=== PATIENT | male | born 1975 | race Caucasian/White ===

== ENCOUNTER 2021-12-29 21:56 | Observation (INO) | payer MEDICAID, SELFPAY ==
[2021-12-29 22:06] VITALS: BP 187/103; O2SAT 96
[2021-12-29 22:08] VITALS: BP 187/103; PULSE 77; RESP 18; TEMP 37.2; O2SAT 95; BMI 27.1
--- NOTE | 2021-12-29 22:08 | ECG_ITS ---
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 Measurements Intervals [employer] Rate: 77 P: 57 SC: 168 QRS: 21 QRSD: 141 T: 184 QT: 419 QTc: 476 Interpretive Statements SINUS RHYTHM POSSIBLE LEFT ATRIAL ENLARGEMENT [-0.1mV P-WAVE IN V1/V2] LEFT BUNDLE BRANCH BLOCK [120+ ms QRS DURATION, 80+ ms Q/S IN V1/V2, 85+ ms R IN I/aVL/V5/V6] Compared to ECG 10/29/2017 04:30:40 No significant changes Electronically Signed On 12-30-2021 19:42:45 CDT by Louie York M.D. [id number]
--- NOTE | 2021-12-29 22:08 | XRR_ITS ---
PROCEDURE INFORMATION: Exam: XR Chest Exam date and time: 12/29/2021 10:13 PM Age: 46 years old Clinical indication: Sternal or substernal pain; Additional info: Cp TECHNIQUE: Imaging protocol: XR of the chest. Views: 1 view. COMPARISON: CR Chest 1 [place] [id number] 10/29/2017 1:27 AM FINDINGS: Lungs: The lung bases are suboptimally assessed due to technique however the upper lungs are clear of focal consolidation. Tiny left basilar linear opacities likely atelectasis or scarring. Pleural spaces: Unremarkable. No pleural effusion. No pneumothorax. Heart/Mediastinum: Cardiac silhouette appears normal in size. No obvious vascular congestion. Bones/joints: No acute osseous findings. Other findings: Single view was submitted. XR/XR chest 1V portable [id number] IMPRESSION: No obvious acute consolidation. Suboptimal lung base assessment. Followup including lateral view may be obtained if clinically indicated.
[2021-12-29 22:22] LABS: Basophils % 0.6 %; Eosinophils # 0.3 10^3/uL (0.0-0.8); Eosinophils % 3.9 %; Hematocrit 43.8 % (42.0-52.0); Lymphocytes # 2.3 10^3/uL (0.8-4.8); Lymphocytes % 33.2 %; Mean Corpuscular Hemoglobin 28.6 pg (28.0-34.0); Mean Corpuscular Volume 89.6 fl (80-94); Mean Platelet Volume 9.3 fL (7.4-10.4); Monocytes # 0.7 10^3/uL (0.2-0.9); Monocytes % 9.7 %; Neutrophils # 3.62 10^3/uL (1.8-7.7); Neutrophils % 52.3 %; Nucleated Red Blood Cells % 0 %; Platelet Count 240 10^3/cmm (130-400); Red Blood Count 4.89 10^6/uL (4.1-5.3); Red Cell Distribution Width 13.2 % (12.1-15.1); White Blood Count 6.9 10^3/uL (4.0-10.0)
[2021-12-29 22:30] VITALS: PULSE 73; O2SAT 96
[2021-12-29] MEDS: aspirin 325 mg Tablet PO (22:33)
[2021-12-29] MEDS: nitroglycerin 1 gm/inch oint Pkt 2 INCH TOPICAL (22:34)
[2021-12-29 22:35] LABS: Troponin(5th) Baseline 23 ng/L (0-15)
[2021-12-29] MEDS: ondansetron 2 mg/ML SDV 2 mL 4 MG IVP ×2 (22:35→23:49)
[2021-12-29 22:36] VITALS: RESP 20
[2021-12-29] MEDS: morphine 4 mg/mL SDV 1 mL IVP (22:36)
[2021-12-29] MEDS: labetalol 5 mg/mL SDV 20mL 20 MG IVP (22:40)
[2021-12-29 22:43] LABS: Alanine Aminotransferase 16 U/L (0-41); Albumin Level 4.3 g/dL (3.5-5.2); Alkaline Phosphatase 102 IU/L (40-130); Anion Gap 13.8 (5-19); Aspartate Amino Transferase 17 U/L (0-40); Blood Urea Nitrogen 11 mg/dL (6-20); Calcium 9.1 mg/dL (8.5-10.5); Carbon Dioxide 26 mmol/L (22-29); Chloride 100 mmol/L (98-107); Creatine Phosphokinase 88 U/L (39-308); Glomerular Filtration Rate 103.6 mL/min (90-130); Glucose 94 mg/dL (65-115); NT Pro B Type Natriuretic Pept 339 pg/mL (0-125); Osmolality Calculated 281 mOsm/kg (285-295); Potassium 3.8 mmol/L (3.5-5.1); Sodium 136 mmol/L (136-145); Total Bilirubin 0.3 mg/dL (0.15-1.2); Total Protein 7.3 g/dL (6.6-8.7)
--- NOTE | 2021-12-29 22:49 | W.ED.CHESTPA ---
HPI - Chest Pain General: Chief Complaint: Chest Pain Stated Complaint: CP Time Seen by Provider: 12/29/21 22:01 Source: patient History of Present Illness: 46-year-old male with a history of coronary disease. He believes he had his last stent around a year and a half ago at an outside facility. He presents with chest discomfort. It started this evening after his and he were out driving around. He describes it as a tightness. He notes that his blood pressure has been hard to control recently despite regular use of his blood pressure medication. He was seen at [facility] 4 to 5 days ago with hypertension, and was allowed discharge at that point. Rates his pain at a 9.5. He says he is nauseated, and short of breath. The pain radiates into his neck. MD complaint: chest pain Pertinent past history: coronary artery disease Onset (ago): hour(s) Timing of current episode: constant Prior episodes: Yes Onset: during rest Pain location: substernal Pain radiation: back and neck Severity: severe Quality: tightness and heaviness Relieving factors: nitroglycerin Associated symptoms: Reports dyspnea, leg edema and nausea; Deny abdominal pain, diaphoresis, fever(s), palpitations or vomiting Treatment prior to arrival: nitroglycerin Review of Systems Const: Denies: fever(s) or diaphoresis ENMT: Denies: throat pain Card: Denies: palpitations Resp: Reports: dyspnea; Denies: productive cough or non-productive cough GI: Reports: nausea; Denies: abdominal pain or vomiting Neuro: Denies: headache(s) Physical Exam Const: GENERAL APPEARANCE: cooperative; not frail appearing HENMT: COMMON NORMALS: normocephalic, atraumatic and Normal external nose present HEAD & SCALP: normocephalic and atraumatic FACE & SINUS: normal facial exam NOSE: Normal external nose present and Normal nares present Eye: COMMON NORMALS: Equal, round and reactive pupils present and EOMs intact bilaterally PUPIL: Yes Equal, round and reactive pupils present Neck/C-Spine: GENERAL: Yes trachea midline Chest: COMMONS NORMALS: normal inspection of the chest CHEST: No tenderness Resp: COMMON NORMALS: normal respiratory effort, No use of accessory muscles and clear to auscultation bilaterally AUSCULTATION: clear to auscultation bilaterally Cardio: COMMON NORMALS: regular rate and regular rhythm RATE: regular rate RHYTHM: regular rhythm GI: COMMON NORMALS: Normal to inspection, nondistended, normoactive bowel sounds present, Soft to palpation and non-tender PALPATION: Yes Soft to palpation Extremity: COMMON NORMALS: no pedal edema Neuro: GEMA COMA SCALE: document GCS findings Gema coma scale eye opening: Spontaneous Gema coma scale verbal response: Orientated [place] coma scale motor response: Obey commands Gema coma scale total score: 15 Skin: COMMON NORMALS: no rashes or lesions noted GENERAL SKIN EXAM: no rashes or lesions noted Course Consultations: Consultation #1: Jailyn Vital Signs: Vital signs: Vital Signs Temperature 99.0 F 12/29/21 22:08 Pulse Rate 66 12/30/21 00:00 Respiratory Rate 20 H 12/30/21 01:06 Blood Pressure 143/94 12/30/21 00:00 Pulse Oximetry 92 12/30/21 00:00 MDM - Chest Pain Medical Decision Making 46-year-old gentleman with a history of coronary disease status post 2 different stents on 2 occasions. His last was 1.5 years ago. He said chest pain on and off for a few days. It was much more intense this evening. It radiates to his jaw, and now to both arms. His CBC is normal. His BMP is normal. His EKG shows a left bundle branch block that is significant. His first troponin was 23, second was 23 as well. Initially, nitroglycerin paste, and morphine helped with his pain. It has since returned though despite continued use of nitroglycerin paste. He will be given another dose of morphine his blood pressure was quite elevated on arrival, but with IV lab nadolol, and nitroglycerin paste, it is improved. Blood pressure was 140/70. Since he still having pain, and has a coronary disease history, he will be observed. Lab Data : 12/29/21 22:05 12/29/21 22:05 Radiology Impressions Chest X-Ray 12/29/21 22:08 IMPRESSION: No obvious acute consolidation. Suboptimal lung base assessment. Followup including lateral view may be obtained if clinically indicated. Laboratory Results WBC 6.9 10^3/uL (4.0-10.0) 12/29/21 22:05 RBC 4.89 10^6/uL (4.1-5.3) 12/29/21 22:05 Hgb 14.0 g/dL (11.7-16.6) 12/29/21 22:05 Hct 43.8 % (42.0-52.0) 12/29/21 22:05 MCV 89.6 fl (80-94) 12/29/21 22:05 MCH 28.6 pg (28.0-34.0) 12/29/21 22:05 MCHC 32.0 g/dL (30.0-36.0) 12/29/21 22:05 RDW 13.2 % (12.1-15.1) 12/29/21 22:05 Plt Count 240 10^3/cmm (130-400) 12/29/21 22:05 MPV 9.3 fL (7.4-10.4) 12/29/21 22:05 Neut % (Auto) 52.3 % 12/29/21 22:05 Lymph % (Auto) 33.2 % 12/29/21 22:05 [place] % (Auto) 9.7 % 12/29/21 22:05 Eos % (Auto) 3.9 % 12/29/21 22:05 Baso % (Auto) 0.6 % 12/29/21 22:05 Neut # (Auto) 3.62 10^3/uL (1.8-7.7) 12/29/21 22:05 Lymph # (Auto) 2.3 10^3/uL (0.8-4.8) 12/29/21 22:05 [place] # (Auto) 0.7 10^3/uL (0.2-0.9) 12/29/21 22:05 Eos # (Auto) 0.3 10^3/uL (0.0-0.8) 12/29/21 22:05 Baso # (Auto) 0.0 10^3/uL (0.0-0.1) 12/29/21 22:05 Nucleated RBC % (auto) 0 % 12/29/21 22:05 Nucleated RBCs # 0.0 /100WBC 12/29/21 22:05 Sodium 136 mmol/L (136-145) 12/29/21 22:05 Potassium 3.8 mmol/L (3.5-5.1) 12/29/21 22:05 Chloride 100 mmol/L (98-107) 12/29/21 22:05 Carbon Dioxide 26 mmol/L (22-29) 12/29/21 22:05 Anion Gap 13.8 (5-19) 12/29/21 22:05 BUN 11 mg/dL (6-20) 12/29/21 22:05 Creatinine 0.8 mg/dL (0.7-1.2) 12/29/21 22:05 GFR Calculation 103.6 mL/min (90-130) 12/29/21 22:05 Glucose 94 mg/dL (65-115) 12/29/21 22:05 Calculated Osmolality 281 mOsm/kg (285-295) L 12/29/21 22:05 Calcium 9.1 mg/dL (8.5-10.5) 12/29/21 22:05 Total Bilirubin 0.3 mg/dL (0.15-1.2) 12/29/21 22:05 AST 17 U/L (0-40) 12/29/21 22:05 ALT 16 U/L (0-41) 12/29/21 22:05 Alkaline Phosphatase 102 IU/L (40-130) 12/29/21 22:05 Creatine Kinase 88 U/L (39-308) 12/29/21 22:05 Troponin T Baseline 23 ng/L (0-15) H 12/29/21 22:05 Troponin T 120 Minute 22.62 ng/L (0-15) H 12/29/21 23:45 Delta Troponin T -0.38 ABS# (0-10) L 12/29/21 23:45 NT-Pro-B Natriuret Pep 339 pg/mL (0-125) H 12/29/21 22:05 Total Protein 7.3 g/dL (6.6-8.7) 12/29/21 22:05 Albumin 4.3 g/dL (3.5-5.2) 12/29/21 22:05 Globulin 3.0 g/dL (1.3-4.6) 12/29/21 22:05 Discharge Plan Discharge Patient Disposition: Placed in Observation Clinical Impression: Coronary artery disease, Chest pain Coding Level of Care Code ED [employer] Dynamics Instructor for Ev Fwd Exam Comprehensive
[2021-12-29 23:00] VITALS: BP 172/100; PULSE 68; O2SAT 93
[2021-12-29 23:30] VITALS: BP 143/94; PULSE 65; O2SAT 93
[2021-12-30] VITALS (84 sets, daily range): BP systolic 105–181; BP diastolic 57–107; PULSE 62–80; RESP 11–32; TEMP 36.3–36.8; O2SAT 90–99; BMI 25.7
--- NOTE | 2021-12-30 00:08 | ECG_ITS ---
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 Measurements Intervals [place] Rate: 62 P: 30 CT: 168 QRS: 15 QRSD: 145 T: 167 QT: 498 QTc: 507 Interpretive Statements SINUS RHYTHM LEFT BUNDLE BRANCH BLOCK [120+ ms QRS DURATION, 80+ ms Q/S IN V1/V2, 85+ ms R IN I/aVL/V5/V6] Compared to ECG 10/29/2017 04:30:40 No significant changes Electronically Signed On 12-30-2021 19:44:29 CDT by Louie York M.D. [id number]
[2021-12-30 00:28] LABS: Troponin 5 2HR 22.62 ng/L (0-15)
[2021-12-30 00:30] LABS: Troponin 5 2HR Delta -0.38 ABS# (0-10)
[2021-12-30] MEDS: morphine 4 mg/mL SDV 1 mL IVP (01:06)
--- NOTE | 2021-12-30 01:08 | P.HP_ITS ---
Providers/Chief Complaint Chief Complaint: CP History of Present Illness The patient is a 46-year-old male who presented with chief complaint of chest pain. He states that the chest pain started approximately 11:30 AM on December 29, 2021. He states it was of gradual onset and localized to his left chest with radiation to the left side of his neck and his back. He describes it as a sharpness and sent since the time of onset?s been intermittent. He did not take any medication for the pain at home. As worst the pain rated 9 out of 10 and currently rates 6 out of 10. With the chest pain he admits to dyspnea, lightheadedness, dizziness, diaphoresis, palpitations. He denies sensation of rapid heartbeat or sensation knee right heartbeat. Patient has known history of coronary artery disease, status post NV, status post at. He also has known history of CHF with unknown ejection fraction. The patient continues to smoke. From what I understand, the patient had a cardiac catheterization in 2020. He presents for further evaluation Review of Systems General: Reports: 10 or more systems reviewed and unremarkable except in HPI and below Medications/Allergies Allergies Allergy/AdvReac Type Severity Reaction Status Date / Time gabapentin [From Neurontin] Allergy Unknown Verified 12/29/21 22:13 pregabalin [From Lyrica] Allergy Unknown Verified 12/29/21 22:13 Vitals/I&O/Wt Last Vital Signs Temp 99.0 F 12/29/21 22:08 Pulse 66 12/30/21 00:00 Resp 20 H 12/30/21 01:06 BP 143/94 12/30/21 00:00 Pulse Ox 92 12/30/21 00:00 Weight last 48 hrs Weight 90.718 kg Physical Exam Narrative: General: -Alert -No acute distress -No dyspnea -No tachypnea Head: -Atraumatic -Normocephalic Eyes: -Pupils equally round and reactive to light and accommodation -Extraocular muscles intact Neurological: -Cranial nerves II-XII intact Neck: -No jugular venous distention -No thyromegaly -No cervical lymphadenopathy Heart: -Regular rate -Regular rhythm -No murmurs -No gallops -No rubs Lungs: -No wheeze -No rhonchi -No rales ? Abdomen: -Normal bowel sounds in all four quadrants -No rebound -No guarding -No tenderness Extremities: -2/4 pulse in all four extremities -No clubbing -No cyanosis -No edema -No calf tenderness present bilaterally -Negative Luna?s sign bilaterally Musculoskeletal: -5/5 bilateral upper extremity strength -5/5 bilateral lower extremity strength -Sensorium of bilateral upper extremities are equal and intact -Sensorium of bilateral lower extremities are equal and intact ? Additional Details / Additional Findings / Exceptions / Miscellaneous: Data : 12/29/21 22:05 12/29/21 22:05 A&P Assessment and plan (1) Chest pain: Status: Acute Plan chest pain, rule out ACS. Patient has known history of coronary artery disease, status post NV, status post stent. Troponin minimally elevated. Will monitor patient on telemetry and checks her cardiac enzymes. Check TSH, free T4, magnesium level. In the morning we will check fasting lipid panel and recheck EKG. Echo cardiac pending. Aspirin 81 Mill grams by mouth daily plus Plavix 35 Mill cans daily plus metoprolol 12.5 Mill grams by mouth twice a day +1 inch every 6 hours plus Lipitor 80 Mill grams by mouth daily at bedtime Depression COPD CHF. Unknown ejection fraction. Strict I/O. Daily weight. Echocardiogram pending GERD Hyperlipidemia. Fasting lipid panel pending. Lipitor 80 Mill grams by mouth daily at bedtime Obesity. The patient will be counseled regarding lifestyle modification Smoker. The patient will be counseled regarding smoking cessation DVT Proflex is. Lovenox 40 Mill grams subcu tensely daily Attestations Medical Necessity Statement*: the patient's anticipate length of stay is less than 2 midnights to rule out ACS for his chest pain Coding Level of Care Code Acute Sales Agent Financial Report Service for Ev Holt Diagnoses Chest pain R07.9
[2021-12-30 01:44] LABS: Free T4 Free Thyroxine 0.88 ng/dL (0.82-1.77); Magnesium 2.2 mg/dL (1.7-2.3); Thyroid Stimulating Hormone 4.14 uIU/mL (0.27-4.20)
--- NOTE | 2021-12-30 01:50 | USCV_ITS ---
Mckinley Arzola Age: 46 Gender: M : 1975 Exam Date: 12/30/2021 06:45 Ordering Phys: Glendy Glaser DO Technologist: Smith Segal Exam Location: [facility] Indication: chest pain BP: 181 / 107 HR: 73 Rhythm: Sinus Technical Quality: Adequate MEASUREMENTS (Male / Female) Normal Values 2D ECHO LV Diastolic Diameter PLAX 4.0 cm 4.2 - 5.9 / 3.9 - 5.3 cm LV Systolic Diameter PLAX 2.8 cm IVS Diastolic Thickness 1.6 cm 0.6 - 1.0 / 0.6 - 0.9 cm IVS Systolic Thickness 2.0 cm LVPW Diastolic Thickness 1.5 cm 0.6 - 1.0 / 0.6 - 0.9 cm LVPW Systolic Thickness 1.9 cm LVOT Diameter 2.0 cm LV Ejection Fraction 2D Teich 58.7 % LV Ejection Fraction MOD 2C 55.7 % LV Ejection Fraction 2C AL 55.3 % LA Diameter 3.4 cm LA Width 3.0 cm LA Height 4.4 cm RA Width 3.4 cm RA Height 4.1 cm Aorta at Sinotubular Diameter 2.8 cm IVC Diameter 1.9 cm M-MODE Aortic Annulus Diameter 3.0 cm LA Ao Ratio MM 1.3 MV E Point Septal Separation 0.3 cm DOPPLER AV Peak Velocity 169.0 cm/s LVOT Peak Velocity 96.0 cm/s AV Area Cont Eq vti 1.8 cm squared AV Area Cont Eq pk 1.8 cm squared MV Peak Velocity 106.0 cm/s MV Area PHT 3.5 cm squared Mitral E to A Ratio 0.8 MV E' Velocity 43.2 cm/s Mitral E to MV E' Ratio 8.2 Mitral E to LV E' Lateral Ratio 7.1 Mitral E to LV E' Septal Ratio 9.7 TR Peak Velocity 285.6 cm/s TR Peak Gradient 32.6 mmHg TR Mean Velocity 225.5 cm/s TR Mean Gradient 21.0 mmHg TR Velocity Time Integral 99.6 cm Right Atrial Pressure 3.0 mmHg Pulmonary Artery Systolic Pressu 35.6 mmHg RV Acceleration Time 0.1 s RV Ejection Time 0.3 s RV AcT/ET 0.4 FINDINGS Left Ventricle Normal left ventricular size. LV systolic function is normal with EF of 55-60%. No regional wall motion abnormalities. Grade 1 diastolic dysfunction Right Ventricle The right ventricle is normal in size and function. Right Atrium The right atrium is normal in size. Left Atrium The left atrium is normal in size. Mitral Valve Structurally normal mitral valve without significant stenosis or prolapse. There is trace mitral regurgitation. Aortic Valve Structurally normal aortic valve without significant sclerosis or stenosis. There is mild to moderate aortic regurgitation. Tricuspid Valve Structurally normal tricuspid valve without significant stenosis.Trace tricuspid regurgitation. Pulmonary artery systolic pressure is normal. Pulmonic Valve Not well visualized Pericardium Normal pericardium without effusion. Aorta Normal ascending aorta dimension. IVC CONCLUSIONS LV systolic function is normal with EF of 55-60% Grade 1 diastolic dysfunction Trace mitral regurgitation Mild to moderate aortic regurgitation No comparison studies are available Louie York MD (Electronically Signed) Final Date: 30 Dec 2021 13:59 S
--- NOTE | 2021-12-30 01:55 | PC.NURSE ---
Dr. Glaser notified of blood pressure 181/107, pulse 62
[2021-12-30] MEDS: enoxaparin 40 mg/0.4 mL Syringe SUBCUT (02:07)
[2021-12-30] MEDS: clopidogrel 75 mg Tablet PO (02:07)
[2021-12-30] MEDS: hyDRALAzine 20 mg/mL INJ 1 mL 10 MG IVP (02:08)
[2021-12-30 02:16] LABS: Amphetamines Screen Urine Negative (Negative); Barbiturates Screen Urine Negative (Negative); Benzodiazepines Screen Urine Negative (Negative); Cocaine Screen Urine Negative (Negative); Opiate Screen Urine Positive (Negative); PCP Screen Urine Negative (Negative); THC Screen Urine Negative (Negative)
[2021-12-30] MEDS: acetaminophen 325 mg Tablet 650 MG PO (03:48)
[2021-12-30] MEDS: nitroglycerin 1 gm/inch oint Pkt 1 INCH TOPICAL ×2 (03:48→11:41)
--- NOTE | 2021-12-30 04:08 | ECG_ITS ---
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 Measurements Intervals [place] Rate: 65 P: 50 NE: 189 QRS: 48 QRSD: 145 T: 238 QT: 494 QTc: 517 Interpretive Statements SINUS RHYTHM LEFT BUNDLE BRANCH BLOCK [120+ ms QRS DURATION, 80+ ms Q/S IN V1/V2, 85+ ms R IN I/aVL/V5/V6] Compared to ECG 12/29/2021 23:43:36 No significant changes Electronically Signed On 12-30-2021 19:44:25 CDT by Louie York M.D. [id number]
[2021-12-30 04:25] LABS: Troponin 5 6HR 29.14 ng/L (0-15)
[2021-12-30 04:38] LABS: Troponin 5 6HR Delta 6.14 ng/L (0-12)
--- NOTE | 2021-12-30 06:13 | PC.NURSE ---
Patient sleeping in bed at this time, no s/s of pain.
[2021-12-30 06:28] LABS: Chol HDL Ratio 3.44 mg/dL (1.0-5.00); Cholesterol 134 mg/dL (0-200); HDL Cholesterol 39 mg/dL (60-100); LDL Cholesterol Calculated 81 mg/dL (50-129); LDL HDL Ratio 2.08 RATIO (0.00-3.22); Triglycerides 68 mg/dL (0-150)
[2021-12-30 08:43] LABS: D Dimer <= 0.27 ug/mIFEU (0-0.59)
[2021-12-30] MEDS: HYDROmorphone 1 mg/mL INJ 1 mL 0.2 MG IVP ×3 (09:22→19:46)
[2021-12-30] MEDS: aspirin 81 mg Chew Tablet PO (09:23)
[2021-12-30] MEDS: metoprolol tartrate 25 mg Tablet 12.5 MG PO ×2 (09:26→19:48)
--- NOTE | 2021-12-30 09:55 | PC.CHAP ---
Pastoral Care Encounter/Spiritual Assessment Type of Contact [] Declined community mental health social worker visit [] Patient/Family/Request visit [] Outpatient visit [] Follow-up visit [] Physician referral [] Code/Alert [x] Routine visit [] Staff referral [] Actively dying [x] Patient sleeping [] Family support [] [] Out of room [] Palliative care [] [] Receiving care in room [] Pre-surgical visit [] Trauma [] Long length of stay [] ICU visit [] Other: Relational/Emotional Strength [] Patient feels connected with others/family/visitors/staff [] Distress [] Loneliness/isolation [] Abandonment Spirituality of Patient [] Person of Brittney [] Attends Bahai of their Brittney [] Believes in Prayer [] Reads Bible or Jew materials [] There are Spiritual issues to be addressed Chief Librarian Branch Interventions [] Prayer [] Active listening [] Non-anxious presence [] Spiritual/emotional support [] Crisis/trauma care [] Spiritual counseling [] Bereavement support [] Provided bereavement packet [] Provided Bible/devotional materials [] Provided toy/stuffed animal, coloring book to patient or family member [] Provided Communion [] Anointing/[place] [] Salvation [] Completed spiritual assessment [] Other: Impact on Illness or Injury [] Angry [] Fearful [] Anxious [] Often cries [] Exhaustion [] Unable to work [] Unable to attend confucianism [] Unable to walk/stand [] Unable to read [] Unable to drive [] Unable to eat/drink [] Unable to sleep [] Unable to be with family [] Patient intubated [] Other: Summary Time spent with patient
--- NOTE | 2021-12-30 10:22 | P.PN_ITS ---
Subjective Subjective: This morning patient was stating that he still experiencing chest pain despite Nitropaste, I have given him low-dose Dilaudid, consulted Dr. Victor for his typical symptoms, Troponin is trending down, EKG showing old left bundle branch block, patient stating that he has 2 stents placed 2 years ago, he remembers one stent was placed in the maker will give him therapeutic dose of Lovenox EKG changes are related to left bundle branch block, I did review his previous EKG from 2018 which is showing left bundle branch block pattern Vitals/I&O/Wt Last Vital Signs Temp 97.4 F L 12/30/21 04:00 Pulse 71 12/30/21 07:51 Resp 18 12/30/21 09:22 BP 116/74 12/30/21 07:51 Pulse Ox 92 12/30/21 07:51 12/29/21 12/30/21 12/30/21 22:59 06:59 14:59 Intake Total 240 / 240 Output Total 700 / 700 Balance -700 / -700 240 / 240 Weight last 48 hrs Weight 86.636 kg Weight 86.636 kg Weight 86.183 kg Weight 90.718 kg Physical Exam Narrative: This morning patient was laying comfortably however stating that he does experience on and off chest discomfort He has Nitropaste Abdomen soft No signs of edema Multiple skin tattoos S1, S2 Saturating well on room air Nonfocal neuro exam No skin cellulitis No joint swelling Audible stridor or wheezing Data : 12/29/21 22:05 12/29/21 22:05 A&P Assessment and plan (1) Unstable angina: Status: Acute Plan Unstable angina Active smoker Patient is still complaining of chest discomfort We will give him Dilaudid, continue Nitropaste Interval persistent pain we will switch him to nitro drip We will start therapeutic dose of Lovenox Did not meet criteria for ACS Continue aspirin and atorvastatin along with metoprolol Consulted cardiology He has established coronary disease with stents placed 2 years ago at [facility], will request records Tox positive for opioids, patient stating that he only takes Tylenol at home That has could be positive because of opioids given by the EMS Full code Cardiac diet N.p.o. after midnight We will follow-up with cardiology recommendations I counseled patient to let us know if his chest pain gets worse Attestations Medical Necessity Statement*: Coronary angiogram tomorrow Time Spent in Patient Care: 30mins Coding Level of Care Code Acute Director Food Safety for Ev Holt Diagnoses Unstable angina I20.0
[2021-12-30] MEDS: lidocaine 2% viscous 15 ML, aluminum-mag hydrox-simethicon 30 ML, sucralfate oral liq 1 GM PO (11:40)
[2021-12-30] MEDS: ondansetron 2 mg/ML SDV 2 mL 4 MG IVP (11:42)
--- NOTE | 2021-12-30 13:07 | P.CONIM_ITS ---
Providers/Reason For Consult Consulting Physician/Specialty*: Louie York MD/ Cardiology Reason for Consult*: Unstable angina Requesting Physician: Dr Dent Attending Physician: Noris Dent MD History of Present Illness History of Present Illness Mckinley Arzola is a 46 year old male with past medical history of CAD status post prior PCI's, CHF according to his history who presented to the hospital with 1 day of on and off chest discomfort. He feels substernal pain radiating to the left side of the neck and his back. At times it is sharp. He is still having it on and off. He does have some dyspnea. Troponins are negative. EKG does not show significant ischemic changes. Review of Systems Const: Denies: fever(s) or diaphoresis ENMT: Denies: throat pain Card: Denies: palpitations Resp: Reports: dyspnea; Denies: productive cough or non-productive cough GI: Reports: nausea; Denies: abdominal pain or vomiting Neuro: Denies: headache(s) Medications/Allergies Home Medications Medication Instructions Recorded Confirmed Last Taken Type aspirin 81 mg tablet,delayed 81 mg PO DAILY 12/30/21 12/30/21 Unknown History release atorvastatin 80 mg tablet 80 mg PO QPM 12/30/21 12/30/21 Unknown History budesonide-formoterol HFA 160 2 puff INHALATION BID 12/30/21 12/30/21 Unknown History mcg-4.5 mcg/actuation aerosol inhaler (Symbicort) carvedilol 12.5 mg tablet 12.5 mg PO BID 12/30/21 12/30/21 Unknown History clopidogrel 75 mg tablet 75 mg PO DAILY 12/30/21 12/30/21 Unknown History isosorbide mononitrate 60 mg 60 mg PO DAILY 12/30/21 12/30/21 Unknown History tablet,extended release 24 hr loratadine 10 mg tablet 10 mg PO DAILY PRN 12/30/21 12/30/21 Unknown History losartan 25 mg tablet 25 mg PO DAILY 12/30/21 12/30/21 Unknown History pantoprazole 40 mg tablet,delayed 40 mg PO DAILY 12/30/21 12/30/21 Unknown History release paroxetine HCl 20 mg tablet 20 mg PO DAILY 12/30/21 12/30/21 Unknown History tiotropium bromide 18 mcg capsule 36 mcg INHALATION QPM 12/30/21 12/30/21 Unknown History with inhalation device (Spiriva with HandiHaler) trazodone 100 mg tablet 100 mg PO QPM 12/30/21 12/30/21 Unknown History Allergies Allergy/AdvReac Type Severity Reaction Status Date / Time gabapentin [From Neurontin] Allergy Unknown Verified 12/30/21 12:37 pregabalin [From Lyrica] Allergy Unknown Verified 12/30/21 12:37 Current Medications Generic Name Dose Route Start Last Admin Trade Name Freq PRN Reason Stop Dose Admin Acetaminophen 650 mg 12/30/21 01:50 12/30/21 03:48 Acetaminophen 325 Mg Tablet PO 650 mg Q6H PRN Administration Mild/Mod Pain Or Temp >/= 101 Aspirin 81 mg 12/30/21 09:00 12/30/21 09:23 Aspirin 81 Mg Chew Tablet PO 81 mg DAILY DARYL Administration Metoprolol Tartrate 12.5 mg 12/30/21 09:00 12/30/21 09:26 Metoprolol Tartrate 25 Mg Tablet PO 12.5 mg BID@0900,2100 DARYL Administration Nitroglycerin 1 inch 12/30/21 01:50 12/30/21 11:41 Nitroglycerin 1 Gm/Inch Oint Pkt TOPICAL 1 inch Q6H DARYL Administration Ondansetron HCl 4 mg 12/30/21 01:50 12/30/21 11:42 Ondansetron 2 Mg/Ml Sdv 2 Ml IVP 4 mg Q8H PRN Administration vomiting, or N/V if npo PFSH Acute PFSH: Medical History Coronary artery disease Surgical History History of adenoidectomy History of appendectomy History of tonsillectomy Vitals/I&O/Wt Last Vital Signs Temp 97.5 F L 12/30/21 12:00 Pulse 76 12/30/21 12:00 Resp 18 12/30/21 12:00 BP 129/81 12/30/21 12:00 Pulse Ox 96 12/30/21 12:00 12/29/21 12/30/21 12/30/21 22:59 06:59 14:59 Intake Total 240 / 240 Output Total 700 / 700 Balance -700 / -700 240 / 240 Weight last 48 hrs Weight 191 lb Weight 191 lb Weight 190 lb Weight 200 lb Physical Exam Narrative: GENERAL: Patient is alert, awake and oriented x3. [] NECK: No jugular vein distension. [] HEENT: No cyanosis. No icterus. No pallor. [] HEART: Regular S1 and S2. No murmur, rub or gallop. [] LUNGS: Clear to auscultate bilaterally. [] ABDOMEN: Soft, nontender and nondistended. Positive bowel sounds. No guarding, rebound or tenderness. [] CENTRAL NERVOUS SYSTEM: Grossly nonfocal. [] EXTREMITIES: Lower extremities with no edema bilaterally. Pulses palpable in the lower extremities, both dorsalis pedis and posterior tibial. [] Data : 12/29/21 22:05 12/31/21 01:59 A&P Assessment and plan (1) Unstable angina: Status: Acute (2) Chest pain: Patient has presented with her typical chest pain symptoms that are worsening. He is requiring nitro drip. No Troponin elevation or significant ST changes. Given his prior history of CAD with PCI of LAD and current worsening, typical chest pain symptoms, we will proceed with coronary angiogram with possible percutaneous coronary intervention. Risks and benefits of the procedure have been discussed with the patient who understands the risks and benefits and wants to proceed with the procedure. Continue current medications including aspirin and Plavix. Echocardiogram shows normal LV systolic function. Thank you for involving us with care of this patient. We will continue to omari marin. Please call with questions. Status: Acute Consult Attestations Medical Necessity Statement: Care expected to cross 2 midnights Coding Level of Care Code Acute Air Export Logistics Manager for Ev Holt Diagnoses Unstable angina I20.0 Chest pain R07.9
[2021-12-30] MEDS: nitroglycerin drip 50 MG/250 ML PREMIX IV (15:07)
--- NOTE | 2021-12-30 15:32 | PC.NURSE ---
Pt to unit Pt brought to ICU 2 via wheelchair by MS PATIENT SERVICES MANAGER. Pt ambulated to bed with standby assist. Pt is alert and oriented reporting chest pain at a 5/10. Nitro drip has been started. Pt has been oriented to room with call light in place.
--- NOTE | 2021-12-30 19:22 | ECG_ITS ---
[facility] Test Date: 2021-12-30 Pat Name: Mckinley Arzola Department: Room: ICU02 Gender: Male Floor Layer Tile: : 1975 Requested By: Louie York Order Number: [id number] Aliyah MD: Louie York M.D. Measurements Intervals [place] Rate: 71 P: 41 [place]: 174 QRS: 17 QRSD: 150 T: 193 QT: 451 QTc: 492 Interpretive Statements SINUS RHYTHM LEFT BUNDLE BRANCH BLOCK [120+ ms QRS DURATION, 80+ ms Q/S IN V1/V2, 85+ ms R IN I/aVL/V5/V6] Compared to ECG 12/30/2021 03:12:22 No significant changes Electronically Signed On 12-30-2021 19:39:59 CDT by Louie York M.D. [email or web address]
[2021-12-30] MEDS: atorvastatin 40 mg Tablet 80 MG PO (19:48)
--- NOTE | 2021-12-30 20:00 | PC.NURSE ---
Upon coming on shift patient reports chest pain 4/10 with no shortness of breath or nausea. Blood pressure 172/98, O2 saturation 98% with no reports of shortness of breath. Titrated nitro up for chest pain, placed on O2 at 2L NC. Reports continued increase of chest pain to 6/10 and then 8/10, continue to titrate nitro up for chest pain. EKG obtained. Notified Dr. Garces of chest pain 03/12 with radiation to left arm, elevated blood pressure, and current nitro dose. Order given for dilaudid 0.2mg IVP x 1 dose and plan for heart cath in AM.
[2021-12-30] MEDS: enoxaparin 80 mg/0.8 mL Syringe SUBCUT (21:16)
[2021-12-31] VITALS (20 sets, daily range): BP systolic 99–128; BP diastolic 56–74; PULSE 61–71; RESP 4–20; TEMP 36.8–36.9; O2SAT 91–98
[2021-12-31] MEDS: acetaminophen 325 mg Tablet 650 MG PO (00:43)
[2021-12-31 03:37] LABS: Anion Gap 11.3 (5-19); Blood Urea Nitrogen 14 mg/dL (6-20); Calcium 9.1 mg/dL (8.5-10.5); Carbon Dioxide 30 mmol/L (22-29); Chloride 102 mmol/L (98-107); Creatinine Clr Calc Pharmacy 149.8599; Glomerular Filtration Rate 120.9 mL/min (90-130); Glucose 105 mg/dL (65-115); Osmolality Calculated 289 mOsm/kg (285-295); Potassium 4.3 mmol/L (3.5-5.1); Sodium 139 mmol/L (136-145)
[2021-12-31] MEDS: nitroglycerin drip 50 MG/250 ML PREMIX 21 MG IV (04:40)
--- NOTE | 2021-12-31 05:18 | PC.NURSE ---
Shave prep done to bilat groins and left wrist. Cleaned left wrist and bilat groins with chlorhexadine wipes. Pulses marked to bilat feet.
[2021-12-31] MEDS: sodium chloride 0.9% 1,000 ML 50 ML IV (05:42)
[2021-12-31] MEDS: metoprolol tartrate 25 mg Tablet 12.5 MG PO (05:43)
[2021-12-31] MEDS: aspirin 81 mg Chew Tablet PO (05:43)
[2021-12-31] MEDS: diphenhydrAMINE 50 mg Capsule PO (05:43)
--- NOTE | 2021-12-31 06:34 | XACV_ITS ---
Exam Room: [facility] Ht: 183 cm Wt: 88 kg BSA: 2.13 m2 Gender: Male : 1975 Exam Priority: Routine Procedure(s): Procedure Description: Diagnostic procedure Procedure Description: Left Heart Catheterization Procedure Description: Coronary Angiography Diagnostic Cath Status: Urgent Diagnostic Findings * Left Main has no disease. * Left Anterior Descending has no disease. * Circumflex has no disease. * Mid Right Coronary Artery: mild 40% stenosis, [place]: 3 flow. * Coronary angiography shows right dominance. Conclusions 1. Patent prior stents. 2. There is mild coronary artery disease with one vessel disease. Recommendations * Aggressive risk factor modification. * Outpatient cardiology follow up in 4 weeks. Interventional RX Recommendation: medical therapy and/or counseling Diagnostic RX Recommendation: medical therapy and/or counseling Anticoagulation: Heparin Pressures Phase:Rest AO : 144 / 91 ( 114 ) @ 8:36:00 AM 166 / 86 ( 117 ) @ 8:42:00 AM 162 / 82 ( 114 ) @ 8:42:00 AM LV : 160 / 3 / 28 @ 8:42:00 AM 164 / 3 / 27 @ 8:42:00 AM Valves Phase:DefaultPhase AV : 0.0 @ 7:48:19 AM AV Mean Gradient: 0.0 @ 7:48:19 AM Clinical Evaluation EBL: 5mL-10mL Procedural Details Procedure Consent Obtained. Admit Source: In Patient. Pre-Procedure Time Out. Identified patient by full name and date of as verbalized by the patient/guarantor. Does the consent match the physician's order: Yes. Accurate & Complete Informed Consent: Yes. Inpatient/Outpatient History & Physical on Chart: Yes. If H&P is completed, is and addenduem needed: N/A; If yes, is the addendum complete: N/A. Visualize and Verify Site with Patient/Guarantor: N/A. Relevant Radiology Images available: N/A. Pre-op teaching completed and patient verbalized understanding. The risks, benefits, and alternatives of sedation and/or procedure were discussed by physician. The patient agrees to continue. Procedure started. [facility] Clinical Fraility Score: 3: Managing Well. Ophthalmic Pathologist Indications: Worsening Angina. Chest Pain Symptom Assessment: Typical Angina Symptoms. Correct patient, site and procedure confirmed by cath team. Current diagnosis: Chest Pain. PERRLA. Strong, equal hand die trimmer bilaterally. Lungs clear x 5 lobes. IV Site on Arrival: 18 gauge in the right anticubital. IV Fluids: 0.9% NaCl at KVO. 50 mL infused prior to mason tender restoration labor. Pre Procedural Pulses: bilateral dorsalis pedis was 2+. Pre Procedural Pulses: right radial was 3+. Oxygen started at 2liters/min via nasal canula. right groin was prepped with chloroprep then draped in the usual sterile fashion. right radial was prepped with chloroprep then draped in the usual sterile fashion. Physician notified. Baseline sample Acquired. HR: 70 BPM. Physician arrived. Physician scrubbed in. Immediate Pre-Procedure Time Out. Correct Patient: Yes; Correct Procedure: Yes; Correct Site: Yes; Correct Patient Position: Yes; Correct Supplies: Yes; Dried Flammable Prep: Yes; Blood Products Available: N/A;. Arterial access obtained. A 6 trinidadian TIG catheter in over wire. Multiple views taken of left coronary artery. Catheter out. A 5 trinidadian JR4 catheter in over wire. Multiple views taken of right coronary artery. EDP Sample taken: LV 160/3,28; HR: 68 BPM; SpO2: 97%. Pullback taken: LV 164/3,27; AO 166/86(117); Mean: 0mmHg, Peak to Peak: 0mmHg, SEP: 7sec/min; HR: 68 BPM; SpO2: 98%. A TR Band was successful obtaining hemostatsis at the Right Radial artery insertion site. Post Procedure: Pulses reassessed and unchanged. PERRLA. Strong, equal hand die trimmer bilaterally. No VTE prophylaxis required. Medication's Wasted: Heparin = 1000 u. Medication's Wasted: Nitro = 49.8 mg. Medication's Wasted: Lidocaine 1% = 2 mL. Total IV fluids: 45 mL. Post-op diagnosis: Non obstructive CAD. Complications: none. Estimated blood loss: 5mL-10mL. Responsiveness - Normal response to verbal stimuli; alert and oriented, PERRLA. Airway - Unaffected, no intervention required; spontaneous ventilation. Circulation: W/N/L, pulses unchanged. Nausea/Vomiting: No. Procedure completed. Patient transferred by wheelchair to ICU. Vital chart was stopped. Access Site Site: Right Radial artery Sheath Size: 6 Fr Hemostasis Method: TR Band Hemostasis Success: Successful Procedure Medications Start: 7:18 AM Stop: 7:18 AM Medication: Fentanyl Amount: 50 mcg Route: I.V. Start: 7:18 AM Stop: 7:18 AM Medication: 0.9% Saline Amount: 75 ml/hr Route: I.V. drip Start: 7:23 AM Stop: 7:23 AM Medication: Versed Amount: 2 mg Route: I.V. Start: 7:28 AM Stop: 7:28 AM Medication: Benadryl Amount: 50 mg Route: I.V. Start: 7:29 AM Stop: 7:29 AM Medication: Nitrogylcerin Amount: 200 mcg Route: I.A. Start: 7:30 AM Stop: 7:30 AM Medication: Heparin Amount: 5000 units Route: I.V. Start: 7:37 AM Stop: 7:37 AM Medication: Fentanyl Amount: 50 mcg Route: I.V. I, the attending physician, have reviewed and verified all procedure medications. Yes, all medications given per verbal order History/Risk Factors Hypertension: No Dyslipidemia: Yes Peripheral Arterial Disease (PAD): No Myocardial Infarction (MS): No Obesity: No Renal Disease: No Tobacco Use: Current/Recent(w/in 1 year) Prior Interventions PCI: Yes CABG: No Valve Surgery: No Date of PCI: 08/03/2019 Report Signatures Finalized by Louie York MD on 01/06/2022 12:19 AM
--- NOTE | 2021-12-31 07:48 | W.PM.OPSUD ---
Surgery/Procedure H&P Update DATE OF PROCEDURE: December 31, 2021 DATE H&P PERFORMED: 12/30/21 H&P UPDATE INFORMATION: I have reviewed H&P completed within last 30 days, I have examined patient prior to procedure and No changes to prior documentation PREOP DIAGNOSIS: Unstable angina PRIMARY INDICATION FOR PROCEDURE: Unstable angina PLANNED PROCEDURE: Left heart cath with possible percutaneous coronary intervention PATIENT REASSESSED PRIOR TO SEDATION, WITH NO CHANGE NOTED: Yes PHYSICAL EXAM: alert, oriented x 3, clear to auscultation bilaterally and regular rate & rhythm AIRWAY EVAL/ANESTHESIA PLAN: ASA III, Monitored Anesthesia, Local Anesthesia, Risks, benefits & alternatives of sedation and/or procedure discussed and Patient agrees to continue as planned
--- NOTE | 2021-12-31 08:00 | PM.PN ---
Subjective Subjective: Patient is chest pain free now. No significant CAD with patent prior stents Vitals/I&O/Wt Last Vital Signs Temp 98.4 F 12/31/21 04:00 Pulse 61 12/31/21 05:39 Resp 10 L 12/31/21 04:15 BP 110/58 12/31/21 04:15 Pulse Ox 98 12/31/21 04:15 12/30/21 12/31/21 12/31/21 22:59 06:59 14:59 Intake Total 478.275 / 958.275 186.9 / 1145.175 Output Total 975 / 975 500 / 1475 400 / 400 Balance -496.725 / -16.725 -313.1 / -329.825 -400 / -400 Weight last 48 hrs Weight 194 lb Weight 191 lb Weight 191 lb Weight 190 lb Weight 200 lb Physical Exam Narrative: GENERAL: Patient is alert, awake and oriented x3. [] NECK: No jugular vein distension. [] HEENT: No cyanosis. No icterus. No pallor. [] HEART: Regular S1 and S2. No murmur, rub or gallop. [] LUNGS: Clear to auscultate bilaterally. [] ABDOMEN: Soft, nontender and nondistended. Positive bowel sounds. No guarding, rebound or tenderness. [] CENTRAL NERVOUS SYSTEM: Grossly nonfocal. [] EXTREMITIES: Lower extremities with no edema bilaterally. Pulses palpable in the lower extremities, both dorsalis pedis and posterior tibial. [] Data : 12/29/21 22:05 12/31/21 01:59 A&P Assessment and plan (1) Unstable angina: Status: Resolved (2) Chest pain: Status: Resolved Plan Patient has presented with her typical chest pain symptoms that are worsening. He is requiring nitro drip. No Troponin elevation or significant ST changes. Given his prior history of CAD with PCI of LAD and current worsening, typical chest pain symptoms, performed coronary angiogram that shows no significant stenosis and patent prior stents. Continue current medications including aspirin and Plavix. Echocardiogram shows normal LV systolic function. Thank you for involving us with care of this patient. Please call with questions. Attestations Medical Necessity Statement*: Care expected to cross 2 midnights Coding Level of Care Code Acute Bilingual Research Interviewer for Ev Holt Diagnoses Unstable angina I20.0 Chest pain R07.9
--- NOTE | 2021-12-31 09:36 | PC.CHAP ---
Pastoral Care Encounter/Spiritual Assessment Type of Contact [] Declined chemistry quality control analyst visit [] Patient/Family/Request visit [] Outpatient visit [] Follow-up visit [] Physician referral [] Code/Alert [x] Routine visit [] Staff referral [] Actively dying [x] Patient sleeping [] Family support [] [] Out of room [] Palliative care [] [] Receiving care in room [] Pre-surgical visit [] Trauma [] Long length of stay [x] ICU visit [] Other: Relational/Emotional Strength [] Patient feels connected with others/family/visitors/staff [] Distress [] Loneliness/isolation [] Abandonment Spirituality of Patient [] Person of Brittney [] Attends Confucianist of their Brittney [] Believes in Prayer [] Reads Bible or Confucianism materials [] There are Spiritual issues to be addressed Hand Binder Cutter Interventions [x] Prayer [] Active listening [] Non-anxious presence [] Spiritual/emotional support [] Crisis/trauma care [] Spiritual counseling [] Bereavement support [] Provided bereavement packet [] Provided Bible/devotional materials [] Provided toy/stuffed animal, coloring book to patient or family member [] Provided Communion [] Anointing/[place] [] Salvation [x] Completed spiritual assessment [] Other: Impact on Illness or Injury [] Angry [] Fearful [] Anxious [] Often cries [] Exhaustion [] Unable to work [] Unable to attend islam [] Unable to walk/stand [] Unable to read [] Unable to drive [] Unable to eat/drink [] Unable to sleep [] Unable to be with family [] Patient intubated [] Other: Summary Time spent with patient
[2021-12-31] MEDS: enoxaparin 80 mg/0.8 mL Syringe SUBCUT (09:45)
--- NOTE | 2021-12-31 10:17 | P.DS_ITS ---
Discharge Providers Date of Admission: 12/30/21 01:04 Date of Discharge: December 31, 2021 Attending Provider at Admission: Glendy Glaser DO Attending Provider at Discharge: Noris Dent MD Diagnoses at Discharge Discharge Diagnosis (1) Unstable angina: Status: Acute (2) Chest pain: Status: Acute Reason for Visit Reason for Visit: CP Hospital Course Hospital Course 46-year male who has history of coronary artery disease status post 2 stents which were placed at [facility] 2 years ago, active smoker presented with chief complaint of chest pain. Secondary to typical presentation of his chest pain I requested Dr. York to evaluate the patient who took patient for coronary angiogram next day. Coronary angiogram was clean, stents were patent. Patient was counseled to quit smoking and follow-up with his health program specialist. Of note he was complaining of chest pain during his hospitalization which improved with nitroglycerin, he was kept on nitroglycerin drip on 12/30 in ICU. His troponins were unremarkable, EKG did not show new changes other than an old left bundle branch block, TSH normal. D-dimer unremarkable. Echo showed preserved ejection fraction grade 1 diastolic dysfunction no regional wall motion abnormality. Physical Exam Narrative: Pleasant cooperative S1, S2 No chest pain S1, S2 Saturating well on room air Hemodynamically stable Nonfocal neuro exam Multiple skin tattoos Discharge Data Studies Completed and Pending Completed Studies During Hospitalization Category Date Time Status XR chest 1V portable [id number] Stat Exams 12/29/21 22:08 Completed CV. echo complete* [id number] Routine Ultrasound 12/30/21 01:50 Completed Pending at discharge Category Date Time Status FORMING YARDAGE CONTROL OPERATOR request for service Routine Exams 12/31/21 06:34 Ordered Radiology Impressions Chest X-Ray 12/29/21 22:08 IMPRESSION: No obvious acute consolidation. Suboptimal lung base assessment. Followup including lateral view may be obtained if clinically indicated. Laboratory Results WBC 6.9 10^3/uL (4.0-10.0) 12/29/21 22:05 RBC 4.89 10^6/uL (4.1-5.3) 12/29/21 22:05 Hgb 14.0 g/dL (11.7-16.6) 12/29/21 22:05 Hct 43.8 % (42.0-52.0) 12/29/21 22:05 MCV 89.6 fl (80-94) 12/29/21 22:05 MCH 28.6 pg (28.0-34.0) 12/29/21 22:05 MCHC 32.0 g/dL (30.0-36.0) 12/29/21 22:05 RDW 13.2 % (12.1-15.1) 12/29/21 22:05 Plt Count 240 10^3/cmm (130-400) 12/29/21 22:05 MPV 9.3 fL (7.4-10.4) 12/29/21 22:05 Neut % (Auto) 52.3 % 12/29/21 22:05 Lymph % (Auto) 33.2 % 12/29/21 22:05 [place] % (Auto) 9.7 % 12/29/21 22:05 Eos % (Auto) 3.9 % 12/29/21 22:05 Baso % (Auto) 0.6 % 12/29/21 22:05 Neut # (Auto) 3.62 10^3/uL (1.8-7.7) 12/29/21 22:05 Lymph # (Auto) 2.3 10^3/uL (0.8-4.8) 12/29/21 22:05 [place] # (Auto) 0.7 10^3/uL (0.2-0.9) 12/29/21 22:05 Eos # (Auto) 0.3 10^3/uL (0.0-0.8) 12/29/21 22:05 Baso # (Auto) 0.0 10^3/uL (0.0-0.1) 12/29/21 22:05 Nucleated RBC % (auto) 0 % 12/29/21 22:05 Nucleated RBCs # 0.0 /100WBC 12/29/21 22:05 D-Dimer <= 0.27 ug/mIFEU (0-0.59) 12/30/21 03:44 Sodium 139 mmol/L (136-145) 12/31/21 01:59 Potassium 4.3 mmol/L (3.5-5.1) 12/31/21 01:59 Chloride 102 mmol/L (98-107) 12/31/21 01:59 Carbon Dioxide 30 mmol/L (22-29) H 12/31/21 01:59 Anion Gap 11.3 (5-19) 12/31/21 01:59 BUN 14 mg/dL (6-20) 12/31/21 01:59 Creatinine 0.7 mg/dL (0.7-1.2) 12/31/21 01:59 GFR Calculation 120.9 mL/min (90-130) 12/31/21 01:59 Glucose 105 mg/dL (65-115) 12/31/21 01:59 Calculated Osmolality 289 mOsm/kg (285-295) 12/31/21 01:59 Calcium 9.1 mg/dL (8.5-10.5) 12/31/21 01:59 Magnesium 2.2 mg/dL (1.7-2.3) 12/29/21 23:45 Total Bilirubin 0.3 mg/dL (0.15-1.2) 12/29/21 22:05 AST 17 U/L (0-40) 12/29/21 22:05 ALT 16 U/L (0-41) 12/29/21 22:05 Alkaline Phosphatase 102 IU/L (40-130) 12/29/21 22:05 Creatine Kinase 88 U/L (39-308) 12/29/21 22:05 Troponin T Baseline 23 ng/L (0-15) H 12/29/21 22:05 Troponin T 120 Minute 22.62 ng/L (0-15) H 12/29/21 23:45 Delta Troponin T -0.38 ABS# (0-10) L 12/29/21 23:45 Troponin T Hi Sens 6Hr 29.14 ng/L (0-15) H 12/30/21 03:44 Troponin T Hi Sens 6Hr Delta 6.14 ng/L (0-12) 12/30/21 03:44 NT-Pro-B Natriuret Pep 339 pg/mL (0-125) H 12/29/21 22:05 Total Protein 7.3 g/dL (6.6-8.7) 12/29/21 22:05 Albumin 4.3 g/dL (3.5-5.2) 12/29/21 22:05 Globulin 3.0 g/dL (1.3-4.6) 12/29/21 22:05 Triglycerides 68 mg/dL (0-150) 12/30/21 03:44 Cholesterol 134 mg/dL (0-200) 12/30/21 03:44 LDL Cholesterol, Calc 81 mg/dL (50-129) 12/30/21 03:44 HDL Cholesterol 39 mg/dL (60-100) L 12/30/21 03:44 LDL/HDL Ratio 2.08 RATIO (0.00-3.22) 12/30/21 03:44 Cholesterol/HDL Ratio 3.44 mg/dL (1.0-5.00) 12/30/21 03:44 TSH 4.14 uIU/mL (0.27-4.20) 12/29/21 23:45 Free T4 0.88 ng/dL (0.82-1.77) 12/29/21 23:45 Urine Opiates Screen Positive ng/mL (Negative) H 12/30/21 01:20 Ur Barbiturates Screen Negative ng/mL (Negative) 12/30/21 01:20 Ur Phencyclidine Scrn Negative ng/mL (Negative) 12/30/21 01:20 Ur Amphetamines Screen Negative ng/mL (Negative) 12/30/21 01:20 U Benzodiazepines Scrn Negative ng/mL (Negative) 12/30/21 01:20 Urine Cocaine Screen Negative ng/mL (Negative) 12/30/21 01:20 U Marijuana (THC) Screen Negative ng/mL (Negative) 12/30/21 01:20 Vitals Last Vital Signs Temp 98.4 F 12/31/21 04:00 Pulse 61 12/31/21 05:39 Resp 10 L 12/31/21 04:15 BP 110/58 12/31/21 04:15 Pulse Ox 98 12/31/21 04:15 Discharge Plan Discharge Patient Disposition: Home Condition: Stable Prescriptions: Continued atorvastatin 80 mg tablet 80 mg PO QPM 0RF carvedilol 12.5 mg tablet 12.5 mg PO BID 0RF trazodone 100 mg tablet 100 mg PO QPM 0RF paroxetine HCl 20 mg tablet 20 mg PO DAILY 0RF pantoprazole 40 mg tablet,delayed release (DR/EC) 40 mg PO DAILY 0RF losartan 25 mg tablet 25 mg PO DAILY 0RF loratadine 10 mg Tablet 10 mg PO DAILY PRN (Reason: Allergy Symptoms) 0RF Spiriva with HandiHaler 18 mcg capsule, w/inhalation device 36 mcg INHALATION QPM 0RF Symbicort 160-4.5 mcg/actuation HFA aerosol inhaler 2 puff INHALATION BID 0RF aspirin 81 mg Tablet,Delayed Release (Dr/Ec) 81 mg PO DAILY Qty: 30 0RF clopidogrel 75 mg tablet 75 mg PO DAILY Qty: 30 0RF isosorbide mononitrate 60 mg tablet extended release 24 hr 60 mg PO DAILY Qty: 10 0RF Discharge Orders: Discharge Order (Routine); Ordered 12/31/21 Ordered By: Noris Dent Discharge Diet: Cardiac Discharge Activity: Increase activity as tolerated Patient Instructions: Opioid Safety Discharge Attestations Time Spent in Discharge Care*: less than 30 min Quality Metrics Clinical Quality Measures [ No reported AMI, CVA or VTE this stay] Coding Level of Care Code Acute Chg FW DC note Diagnoses Unstable angina I20.0 Chest pain R07.9
== END 2021-12-31 14:06 | disposition home or self-care (01) ==
LOC: ER 12-30 01:16 → MEDSURG 12-30 01:16 → ICU 12-30 15:02
PROVIDERS: Internal Medicine; Admitting Provider Internal Medicine; Emergency Provider Emergency Medicine; Visit Provider Internal Medicine
DX: I25.110 Atherosclerotic heart disease of native coronary artery with unstable angina pectoris (principal); E78.5 Hyperlipidemia, unspecified; F17.210 Nicotine dependence, cigarettes, uncomplicated; Z79.82 Long term (current) use of aspirin; F32.9 Major depressive disorder, single episode, unspecified; J44.9 Chronic obstructive pulmonary disease, unspecified; E66.9 Obesity, unspecified; Z68.26 Body mass index [BMI] 26.0-26.9, adult
CPT/HCPCS: 36415; 71045; 80048; 80053; 80061; 80306; 82550; 83735; 83880; 84439; 84443; 84484; 85025; 85378; 93005; 93306; 93452; 93458; 96360; 96365; 96366; 96372; 96375; 96376; 99152; 99153; 99285; C1769; C1887; C1894; G0378; J0360; J1170; J1200; J1644; J1650; J2250; J2270; J2405; J3010; J3490; J7030; Q0163; Q9967

== ENCOUNTER → 2022-02-07 09:00 | Outpatient (BNVA) | payer MEDICAID, SELFPAY | PROVIDERS: Visit Provider Nurse Practitioner Family | DX: I25.10 Atherosclerotic heart disease of native coronary artery without angina pectoris (principal); F17.210 Nicotine dependence, cigarettes, uncomplicated | CPT/HCPCS: 36415; 80048; 99214 ==

== ENCOUNTER 2022-06-07 21:01 | Emergency (ER) | payer MEDICAID, SELFPAY ==
[2022-06-07 21:03] VITALS: BP 172/101; PULSE 74; RESP 18; TEMP 36.6; O2SAT 95; BMI 25.9
--- NOTE | 2022-06-07 21:09 | XRR_ITS ---
PROCEDURE INFORMATION: Exam: XR Chest Exam date and time: 06/07/2022 9:26 PM Age: 46 years old Clinical indication: Pain; Chest pressure; Additional info: Cp TECHNIQUE: Imaging protocol: Radiologic exam of the chest. Views: 1 view. COMPARISON: CR XR chest 1V portable [id number] 12/29/2021 10:13 PM FINDINGS: Lungs: Unremarkable. No consolidation. Pleural spaces: Unremarkable. No pleural effusion. No pneumothorax. Heart/Mediastinum: Unremarkable. No cardiomegaly. Bones/joints: Unremarkable. XR/XR chest 1V portable [id number] IMPRESSION: No acute findings.
--- NOTE | 2022-06-07 21:10 | ECG_ITS ---
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 Measurements Intervals [place] Rate: 70 P: 45 CA: 162 QRS: 20 QRSD: 145 T: 162 QT: 434 QTc: 471 Interpretive Statements SINUS RHYTHM LEFT BUNDLE BRANCH BLOCK Compared to ECG 12/30/2021 19:26:47 No significant changes Electronically Signed On 06-08-2022 9:44:44 PROFESSIONAL FEE CODER by Vanessa Alvarado M.D. [email or web address]/store/[id number] f
[2022-06-07] MEDS: aspirin 81 mg Chew Tablet 324 MG PO (21:25)
[2022-06-07 21:26] LABS: Basophils % 0.4 %; Eosinophils # 0.2 10^3/uL (0.0-0.8); Hematocrit 48.3 % (42.0-52.0); Hemoglobin 15.8 g/dL (11.7-16.6); Lymphocytes # 2.6 10^3/uL (0.8-4.8); Lymphocytes % 26.7 %; Mean Corpuscular HGB Conc 32.7 g/dL (30.0-36.0); Mean Corpuscular Hemoglobin 28.6 pg (28.0-34.0); Mean Corpuscular Volume 87.3 fl (80-94); Mean Platelet Volume 9.7 fL (7.4-10.4); Monocytes # 0.5 10^3/uL (0.2-0.9); Monocytes % 4.6 %; Neutrophils # 6.52 10^3/uL (1.8-7.7); Neutrophils % 65.9 %; Nucleated Red Blood Cells % 0 %; Platelet Count 243 10^3/cmm (130-400); Red Blood Count 5.53 10^6/uL (4.1-5.3); Red Cell Distribution Width 12.8 % (12.1-15.1); White Blood Count 9.9 10^3/uL (4.0-10.0)
[2022-06-07] MEDS: ondansetron 2 mg/ML SDV 2 mL 4 MG IVP (21:26)
[2022-06-07] MEDS: morphine 4 mg/mL SDV 1 mL IVP ×2 (21:27→23:40)
[2022-06-07 21:30] VITALS: BP 177/100; PULSE 74; RESP 15; O2SAT 93
[2022-06-07 21:37] LABS: INR 0.91 (0.8-1.2)
[2022-06-07] MEDS: nitroglycerin 1 gm/inch oint Pkt 2 INCH TOPICAL (21:42)
[2022-06-07 21:51] LABS: Troponin(5th) Baseline 20 ng/L (0-15)
[2022-06-07 22:00] LABS: Alanine Aminotransferase 27 U/L (0-41); Albumin Level 5.4 g/dL (3.5-5.2); Alkaline Phosphatase 143 U/L (40-130); Aspartate Amino Transferase 25 U/L (0-40); Blood Urea Nitrogen 10 mg/dL (6-20); Calcium 9.8 mg/dL (8.5-10.5); Carbon Dioxide 31 mmol/L (22-29); Chloride 96 mmol/L (98-107); Globulin 2.9 g/dL (1.3-4.6); Glomerular Filtration Rate 144.4 mL/min (90-130); Glucose 89 mg/dL (65-115); NT Pro B Type Natriuretic Pept 238 pg/mL (0-125); Osmolality Calculated 283 mOsm/kg (285-295); Sodium 137 mmol/L (136-145); Total Bilirubin 0.4 mg/dL (0.15-1.2); Total Protein 8.3 g/dL (6.6-8.7)
[2022-06-07 22:03] LABS: Anion Gap 13.8 (5-19); Potassium 3.8 mmol/L (3.5-5.1)
[2022-06-07 22:15] VITALS: BP 137/86; PULSE 65; RESP 14; O2SAT 93
--- NOTE | 2022-06-07 22:37 | ED_ITS ---
HPI - Chest Pain General: Chief Complaint: Chest Pain Stated Complaint: Chest Pains Time Seen by Provider: 06/07/22 21:09 Source: patient History of Present Illness: 46-year-old male with a history of coronary disease. He has a stent in his LAD. He presents with chest discomfort. He has had chest discomfort on and off for the past couple of weeks. It was worse today, radiating into his neck, and causing nausea and one vomiting episode. He is mildly short of breath as well. The pain is sharp. MD complaint: chest pain Pertinent past history: coronary artery disease Onset (ago): hour(s) Timing of current episode: constant Prior episodes: Yes Onset: during rest Pain location: substernal Pain radiation: neck Severity: moderate Quality: sharp Relieving factors: nothing Exacerbating factors: nothing Associated symptoms: Reports dyspnea, nausea and vomiting; Deny abdominal pain, diaphoresis, fever(s), leg edema, palpitations or syncope Review of Systems Const: Denies: fever(s) or diaphoresis Card: Denies: palpitations or syncope Resp: Reports: dyspnea GI: Reports: nausea and vomiting; Denies: abdominal pain Musc: Reports: neck pain; Denies: back pain Neuro: Denies: headache(s) PFSH ED PFSH: Medical History Coronary artery disease Surgical History History of adenoidectomy History of appendectomy History of tonsillectomy Family History Mother CAD (coronary artery disease) Hypertension Other Diabetes Myocardial infarct Social History Smoking and tobacco status: current every day smoker cigarettes Packs smoked per day: 1 Years cigarettes smoked: 31 Physical Exam Const: COMMON NORMALS: no acute distress GENERAL APPEARANCE: cooperative; not ill appearing and not frail appearing HENMT: COMMON NORMALS: normocephalic, atraumatic and Normal external nose present HEAD & SCALP: normocephalic and atraumatic FACE & SINUS: normal facial exam and face symmetric NOSE: Normal external nose present Eye: COMMON NORMALS: Equal, round and reactive pupils present and EOMs intact bilaterally PUPIL: Yes Equal, round and reactive pupils present Neck/C-Spine: GENERAL: Yes trachea midline Chest: CHEST: Yes Symmetrical chest wall rise Resp: COMMON NORMALS: normal respiratory effort, No retractions, No use of accessory muscles and clear to auscultation bilaterally AUSCULTATION: clear to auscultation bilaterally Cardio: COMMON NORMALS: regular rate and regular rhythm RATE: regular rate RHYTHM: regular rhythm GI: COMMON NORMALS: Normal to inspection, nondistended, normoactive bowel sounds present Extremity: COMMON NORMALS: no pedal edema Neuro: EMMA COMA SCALE: document GCS findings Emma coma scale eye opening: Spontaneous [place] coma scale verbal response: Orientated [place] coma scale motor response: Obey commands Emma coma scale total score: 15 SENSORY EXAM: Yes extremities (intact) Psych: COMMON NORMALS: speech normal SPEECH: Yes normal speech Skin: COMMON NORMALS: no rashes or lesions noted GENERAL SKIN EXAM: no rashes or lesions noted Course Vital Signs: Vital signs: Vital Signs Temperature 97.9 F 06/07/22 21:03 Pulse Rate 69 06/07/22 23:41 Respiratory Rate 18 06/07/22 23:41 Blood Pressure 143/85 06/07/22 23:41 Pulse Oximetry 96 06/07/22 23:41 Oxygen Delivery Me thod 06/07/22 23:41 MDM - Chest Pain Medical Decision Making Pain improved after Nitropaste, morphine and Zofran here. He was initially quite hypertensive, now blood pressure 140/85. Heart rate is 77. EKG shows a sinus rhythm with left bundle branch block that is old. He has a normal axis. Rate is 70. CBC is normal. BMP is not remarkable. Liver enzymes are not raheel rkable. His baseline troponin is 20. BNP is 238. 2 hour is pending. Chest x- ray is nonacute. Second troponin is negative. Pain is controlled. Blood pressure is 149/90. This patient had a negative cath in December. I doubt any further intervention would take place at this time if the patient was admitted. He wishes to go home. His pain is significantly better. We will home for outpatient follow-up Lab Data : 06/07/22 21:15 06/07/22 21:15 Radiology Impressions Chest X-Ray 06/07/22 21:09 IMPRESSION: No acute findings. Laboratory Results WBC 9.9 10^3/uL (4.0-10.0) 06/07/22 21:15 RBC 5.53 10^6/uL (4.1-5.3) H 06/07/22 21:15 Hgb 15.8 g/dL (11.7-16.6) 06/07/22 21:15 Hct 48.3 % (42.0-52.0) 06/07/22 21:15 MCV 87.3 fl (80-94) 06/07/22 21:15 MCH 28.6 pg (28.0-34.0) 06/07/22 21:15 MCHC 32.7 g/dL (30.0-36.0) 06/07/22 21:15 RDW 12.8 % (12.1-15.1) 06/07/22 21:15 Plt Count 243 10^3/cmm (130-400) 06/07/22 21:15 MPV 9.7 fL (7.4-10.4) 06/07/22 21:15 Neut % (Auto) 65.9 % 06/07/22 21:15 Lymph % (Auto) 26.7 % 06/07/22 21:15 [place] % (Auto) 4.6 % 06/07/22 21:15 Eos % (Auto) 2.0 % 06/07/22 21:15 Baso % (Auto) 0.4 % 06/07/22 21:15 Neut # (Auto) 6.52 10^3/uL (1.8-7.7) 06/07/22 21:15 Lymph # (Auto) 2.6 10^3/uL (0.8-4.8) 06/07/22 21:15 [place] # (Auto) 0.5 10^3/uL (0.2-0.9) 06/07/22 21:15 Eos # (Auto) 0.2 10^3/uL (0.0-0.8) 06/07/22 21:15 Baso # (Auto) 0.0 10^3/uL (0.0-0.1) 06/07/22 21:15 Nucleated RBC % (auto) 0 % 06/07/22 21:15 Nucleated RBCs # 0.0 /100WBC 06/07/22 21:15 PT 12.60 SECONDS (12.1-14.9) 06/07/22 21:15 INR 0.91 (0.8-1.2) 06/07/22 21:15 APTT 26.0 SECONDS (23.9-36.7) 06/07/22 21:15 Sodium 137 mmol/L (136-145) 06/07/22 21:15 Potassium 3.8 mmol/L (3.5-5.1) 06/07/22 21:15 Chloride 96 mmol/L (98-107) L 06/07/22 21:15 Carbon Dioxide 31 mmol/L (22-29) H 06/07/22 21:15 Anion Gap 13.8 (5-19) 06/07/22 21:15 BUN 10 mg/dL (6-20) 06/07/22 21:15 Creatinine 0.6 mg/dL (0.7-1.2) L 06/07/22 21:15 GFR Calculation 144.4 mL/min (90-130) H 06/07/22 21:15 Glucose 89 mg/dL (65-115) 06/07/22 21:15 Calculated Osmolality 283 mOsm/kg (285-295) L 06/07/22 21:15 Calcium 9.8 mg/dL (8.5-10.5) 06/07/22 21:15 Total Bilirubin 0.4 mg/dL (0.15-1.2) 06/07/22 21:15 AST 25 U/L (0-40) 06/07/22 21:15 ALT 27 U/L (0-41) 06/07/22 21:15 Alkaline Phosphatase 143 U/L (40-130) H 06/07/22 21:15 Troponin T Baseline 20 ng/L (0-15) H 06/07/22 21:15 Troponin T 120 Minute 19.58 ng/L (0-15) H 06/07/22 23:01 Delta Troponin T -0.42 ABS# (0-10) L 06/07/22 23:01 NT-Pro-B Natriuret Pep 238 pg/mL (0-125) H 06/07/22 21:15 Total Protein 8.3 g/dL (6.6-8.7) 06/07/22 21:15 Albumin 5.4 g/dL (3.5-5.2) H 06/07/22 21:15 Globulin 2.9 g/dL (1.3-4.6) 06/07/22 21:15 Discharge Plan Discharge Patient Disposition: Home Clinical Impression: Chest pain Condition: Stable Prescriptions: No Action oxycodone-acetaminophen 5-325 mg tablet 1 tab PO Q8H PRN cyclobenzaprine 10 mg tablet 10 mg PO TID PRN multivitamin Tablet 1 tab PO DAILY albuterol sulfate 90 mcg/actuation HFA aerosol inhaler 2 puff inhalation Q6H PRN varenicline 0.5 mg tablet 0.5 mg PO BID 7 Days Qty: 14 0RF Rx Instructions: Take 0.5mg once a day for days 1-3, take 0.5mg twice a day for days 4-7. Then 1mg twice a day. varenicline 1 mg tablet 1 mg PO BID 84 Days Qty: 168 0RF isosorbide mononitrate 60 mg tablet extended release 24 hr 60 mg PO DAILY Qty: 30 2RF carvedilol 25 mg tablet 25 mg PO BID Qty: 180 2RF atorvastatin 80 mg tablet 80 mg PO QPM trazodone 100 mg tablet 100 mg PO QPM pantoprazole 40 mg tablet,delayed release (DR/EC) 40 mg PO DAILY loratadine 10 mg Tablet 10 mg PO DAILY PRN (Reason: Allergy Symptoms) Spiriva with HandiHaler 18 mcg capsule, w/inhalation device 36 mcg INHALATION QPM Symbicort 160-4.5 mcg/actuation HFA aerosol inhaler 2 puff INHALATION BID clopidogrel 75 mg tablet 75 mg PO DAILY Qty: 30 0RF aspirin 81 mg Tablet,Delayed Release (Dr/Ec) 81 mg PO DAILY Qty: 30 0RF losartan 25 mg tablet 100 mg PO DAILY Discharge Orders: Discharge ED (Routine); Ordered 06/08/22 Ordered By: Daljit López Discharge Diet: Advance as tolerated Discharge Activity: Increase activity as tolerated Patient Instructions: Chest Pain (ED) Activity Restrictions/Additional Instructions: Return for worsening chest pain, shortness of breath, swelling of the feet, any other concerning symptoms call your doctor Thursday to let them know you are here. They may wish to perform more outpatient testing. Coding Level of Care Code ED Impregnating Machine Operator for Chg Fwd Exam Comprehensive
--- NOTE | 2022-06-07 22:59 | ECG_ITS ---
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 Measurements Intervals [place] Rate: 64 P: 42 FL: 174 QRS: 22 QRSD: 148 T: 211 QT: 459 QTc: 476 Interpretive Statements SINUS RHYTHM WITH OCCASIONAL VENTRICULAR PREMATURE COMPLEXES LEFT BUNDLE BRANCH BLOCK [120+ ms QRS DURATION, 80+ ms Q/S IN V1/V2, 85+ ms R IN I/aVL/V5/V6] Compared to ECG 12/30/2021 19:26:47 Ventricular premature complex(es) now present Electronically Signed On 06-08-2022 9:47:32 TANKMAN by Vanessa Alvarado M.D. [email or web address]/store/[id number]
[2022-06-07 23:24] LABS: Troponin 5 2HR 19.58 ng/L (0-15)
[2022-06-07 23:28] LABS: Troponin 5 2HR Delta -0.42 ABS# (0-10)
[2022-06-07 23:40] VITALS: RESP 18; O2SAT 96
[2022-06-07 23:41] VITALS: BP 143/85; PULSE 69; RESP 18; O2SAT 96
== END 2022-06-08 00:42 | disposition home or self-care (01) ==
PROVIDERS: Emergency Provider Emergency Medicine
DX: R07.9 Chest pain, unspecified (principal); I44.7 Left bundle-branch block, unspecified; F17.210 Nicotine dependence, cigarettes, uncomplicated; I25.10 Atherosclerotic heart disease of native coronary artery without angina pectoris; I10 Essential (primary) hypertension
CPT/HCPCS: 71045; 80053; 83880; 84484; 85025; 85610; 85730; 93005; 96374; 96375; 96376; 99285; J2270; J2405

== ENCOUNTER 2022-07-01 07:08 | Outpatient (CLI) | payer MEDICAID, SELFPAY ==
--- NOTE | 2022-07-01 07:29 | USCV_ITS ---
Mckinley Arzola Age: 46 Gender: M : 1975 Exam Date: 07/01/2022 07:49 Ordering Phys: Sebastián Tejada XX Technologist: Smith Segal [place] [facility] [place]: DYSPNEA ON EXERTION BP: 160 / 90 HR: 65 Rhythm: Sinus Technical Quality: Adequate MEASUREMENTS (Male / Female) Normal Values 2D ECHO LV Diastolic Diameter PLAX 4.4 cm 4.2 - 5.9 / 3.9 - 5.3 cm LV Systolic Diameter PLAX 2.9 cm IVS Diastolic Thickness 0.9 cm 0.6 - 1.0 / 0.6 - 0.9 cm IVS Systolic Thickness 1.4 cm LVPW Diastolic Thickness 0.9 cm 0.6 - 1.0 / 0.6 - 0.9 cm LVPW Systolic Thickness 2.2 cm LVOT Diameter 2.0 cm LV Ejection Fraction 2D Teich 63.9 % LV Ejection Fraction MOD 2C 56.2 % LV Ejection Fraction 2C AL 55.7 % LA Diameter 3.5 cm LA Width 3.7 cm LA Height 4.2 cm RA Width 3.2 cm RA Height 4.1 cm Aorta at Sinotubular Diameter 2.4 cm IVC Diameter 1.8 cm M-MODE Aortic Annulus Diameter 3.3 cm LA Ao Ratio MM 1.2 MV E Point Septal Separation 0.3 cm DOPPLER AV Peak Velocity 122.0 cm/s LVOT Peak Velocity 105.0 cm/s AV Area Cont Eq vti 2.4 cm squared AV Area Cont Eq pk 2.7 cm squared MV Peak Velocity 92.0 cm/s MV Area PHT 4.2 cm squared Mitral E to A Ratio 0.8 MV E' Velocity 36.0 cm/s Mitral E to LV E' Lateral Ratio 9.8 TR Peak Velocity 177.6 cm/s TR Peak Gradient 12.6 mmHg TR Mean Velocity 138.9 cm/s TR Mean Gradient 9.0 mmHg TR Velocity Time Integral 49.6 cm Right Atrial Pressure 3.0 mmHg Pulmonary Artery Systolic Pressu 15.6 mmHg PV Peak Velocity 91.7 cm/s RV Acceleration Time 0.1 s RV Ejection Time 0.3 s RV AcT/ET 0.4 FINDINGS Left Ventricle Left ventricle is normal in size. LV systolic function is normal with EF of 50 to 55%. No regional wall motion abnormalities are seen. Grade 1 diastolic dysfunction Right Ventricle Normal in size and function Right Atrium Normal in size Left Atrium Normal in size Mitral Valve Structurally normal mitral valve. Mild mitral regurgitation Aortic Valve Structurally normal aortic valve. No significant aortic stenosis. Mild to moderate aortic regurgitation Tricuspid Valve Trace tricuspid regurgitation. Insufficient TR jet to calculate RVSP Pulmonic Valve Not well-visualized. Trace pulmonic regurgitation Pericardium Normal Aorta Normal in size IVC Appears to be normal. Normal RA pressure CONCLUSIONS LV systolic function is normal with EF of 50 to 55%. Grade 1 diastolic dysfunction Mild mitral regurgitation Mild to moderate aortic regurgitation Trace tricuspid regurgitation Trace pulmonic regurgitation Compared to prior echocardiogram from 12/30/2021, no significant changes are seen. Louie York MD (Electronically Signed) Final Date: 15 July 2022 09:11 S
== END 2022-07-01 07:09 | disposition home or self-care (01) ==
LOC: RAD 07:09
PROVIDERS: PCP Family Medicine; Visit Provider Family Medicine
DX: I08.3 Combined rheumatic disorders of mitral, aortic and tricuspid valves (principal); R06.09 Other forms of dyspnea
CPT/HCPCS: 93306

== ENCOUNTER → 2024-11-17 08:30 | Outpatient (BNVA) | payer MEDICAID, SELFPAY | PROVIDERS: PCP Family Medicine; Visit Provider Dermatology | DX: D23.72 Other benign neoplasm of skin of left lower limb, including hip (principal); L82.1 Other seborrheic keratosis; Z08 Encounter for follow-up examination after completed treatment for malignant neoplasm; Z85.828 Personal history of other malignant neoplasm of skin; L91.8 Other hypertrophic disorders of the skin; L29.89 Other pruritus; R20.8 Other disturbances of skin sensation; L53.8 Other specified erythematous conditions; L82.0 Inflamed seborrheic keratosis; D48.5 Neoplasm of uncertain behavior of skin; L57.0 Actinic keratosis | CPT/HCPCS: 11102; 17000; 17110; 99203 ==